=== PATIENT | female | born 1955 | race Caucasian/White ===

== ENCOUNTER 2016-12-21 13:34 | Day surgery (SDC) | payer OTHER ==
[~2016-12-21] VITALS: Ht 157.5 cm; Wt 72.9 kg
[~2016-12-21 13:34] MED LIST: CLOP75TA27 PO; LISI-313 PO; LOVA20TA PO
[2016-12-21 14:10] VITALS: Ht 157.5 cm; Wt 72.9 kg
[2016-12-21 14:26] VITALS: BP 142/76; PULSE 85; RESP 18
[2016-12-21] MEDS ORDERED: LACT1CAP56 PO (14:30)
[2016-12-21] MEDS ORDERED: LORA10TA3 PO (14:30)
[2016-12-21] MEDS ORDERED: PROPOFOL 40 ML ONE (14:46)
[2016-12-21] MEDS ORDERED: LIDOCAINE 2% (SDV) 5 ML INJ ONE (14:46)
[2016-12-21 15:50] VITALS: BP 118/59; PULSE 65; RESP 15
--- NOTE | 2016-12-21 16:48 | GILP ---
DATE OF PROCEDURE: 12/21/2016 PREOPERATIVE DIAGNOSIS: Screening colonoscopy. Rule out colon polyps. POSTOPERATIVE DIAGNOSES: Minimal degree of external hemorrhoids. Rest of the colon appeared normal . DESCRIPTION OF PROCEDURE: After informed written consent was obtained, the patient was asked to lie on the left lateral side. Intravenous anesthesia was given by anesthesiologist, Dr. Irby. When t he patient became somnolent, the Olympus video colonoscope was introduced into the rectum and scope was advanced all the way to the cecum. The entire colon appeared perfectly normal with no mucosal a bnormality. Endoscope at this time was withdrawn. On the way out, further evaluation was carried o ut. No polyps or colitis or any other abnormality detected. Endoscope was withdrawn. Retroflexion was performed. No internal hemorrhoids were noted. When the scope was withdrawn, a minimal to mo derate degree of external hemorrhoids were noted and the procedure was terminated. PLAN: Recommend repeat colonoscopy in 10 years. Dictated By: YULISA MATA MD NC/NTS Conf#: [id number] DID#: [id number] CC: YULISA MATA MD;*EndCC*
== END 2016-12-21 15:37 | disposition home or self-care (01) ==
LOC: GIL 13:34
PROVIDERS: ATTEND Internal Medicine Gastroenterology
DX: Z12.11 Encounter for screening for malignant neoplasm of colon (principal); K64.4 Residual hemorrhoidal skin tags; I10 Essential (primary) hypertension